=== PATIENT | male | born 1995 | race African-American/Black ===

== ENCOUNTER 2017-08-18 19:26 | Emergency (ER) | payer SELFPAY | END 2017-08-18 21:03 | disposition home or self-care (01) | LOC: ER 19:26 | DX: K40.90 Unilateral inguinal hernia, without obstruction or gangrene, not specified as recurrent (principal); K43.9 Ventral hernia without obstruction or gangrene; K59.00 Constipation, unspecified | CPT/HCPCS: 74018; 99284 ==

== ENCOUNTER 2017-11-20 16:36 | Emergency (ER) | payer OTHER ==
[~2017-11-20] VITALS: Ht 190.5 cm; Wt 85.7 kg
[~2017-11-20 16:36] MED LIST: DOCU-109 PO; IBUP200T44 PO
[2017-11-20 19:21] LABS: BASO # 0.1 x10^3/uL (0.0-0.2); BASO % 1 % (0-3); EOS # 0.2 x10^3/uL (0.0-0.7); EOS % 2 % (0-3); HEMATOCRIT 44.5 % (39.0-53.0); HEMOGLOBIN 15.2 g/dL (13.0-17.5); LYMPH # 2.9 x10^3/uL (1.0-4.8); LYMPH % 34 % (24-48); MEAN CORPUSCULAR HEMOGLOBIN 29 pg (25-35); MEAN CORPUSCULAR HGB CONC 34 g/dL (31-37); MEAN CORPUSCULAR VOLUME 84 fL (79-100); MONO # 0.8 x10^3/uL (0.0-1.1); MONO % 10 % (0-9); NEUT # 4.6 x10^3uL (1.8-7.7); NEUT % 53 % (31-73); PLATELET COUNT 161 x10^3/uL (140-400); RED BLOOD COUNT 5.33 x10^6/uL (4.30-5.70); RED CELL DISTRIBUTION WIDTH 13.5 % (11.5-14.5); WHITE BLOOD COUNT 8.7 x10^3/uL (4.0-11.0)
[2017-11-20 19:33] LABS: CREATININE 1.1 mg/dL (0.7-1.3); GFR 101.3; POTASSIUM 4.1 mmol/L (3.5-5.1)
[2017-11-20 19:40] LABS: ALBUMIN 3.8 g/dL (3.4-5.0); ALBUMIN/GLOBULIN RATIO 1.2 (1.0-1.7); TOTAL BILIRUBIN 0.3 mg/dL (0.2-1.0); TOTAL PROTEIN 7.1 g/dL (6.4-8.2)
[2017-11-20 20:03] LABS: BILIRUBIN,URINE NEGATIVE (NEG); CLARITY,URINE CLEAR; COLOR,URINE YELLOW; NITRITE,URINE NEGATIVE (NEG); PH,URINE 7.5; PROTEIN,URINE NEGATIVE (NEG-TRACE); UROBILINOGEN,URINE 0.2 mg/dL (0.2 mg/dL)
--- NOTE | 2017-11-20 20:03 | RAD ---
RS Compliance Statement: One or more of the following individualized dose reduction techniques were utilized for this examination: 1. Automated exposure control 2. Adjustment of the mA and/or kV according to patient size 3. Use of iterative reconstruction technique CT head without contrast 11/20/2017 7:04 PM INDICATION: Severe headache for 4 days COMPARISON: None available TECHNIQUE: Multiple axial CT images of the head were obtained from skull base through the vertex without intravenous contrast. FINDINGS: Head: Ventricles, sulci and basal cisterns are within normal limits. There is no hydrocephalus. Colon-white matter differentiation is normal. There is no acute intracranial hemorrhage. There is no mass, mass effect or midline shift. Posterior fossa is normal in appearance. Visualized portions of the orbits are normal. Paranasal sinuses are well aerated. Mastoid air cells are well aerated. Scalp and calvaria are normal. IMPRESSION: No acute intracranial hemorrhage. Electronically signed by: Gifty Douglas MD (11/20/2017 7:59 PM) [facility]
[2017-11-20 20:09] LABS: BACTERIA,URINE 0 /HPF (0-FEW); RBC,URINE 0 /HPF (0-2); SQUAMOUS EPITHELIAL CELL,UR OCC /LPF; WBC,URINE RARE /HPF (0-4)
[2017-11-20 20:11] LABS: BARBITURATES NEG (NEG); BENZODIAZEPINES NEG (NEG); CANNABINOIDS POS (NEG); COCAINE NEG (NEG); METHADONE NEG (NEG); OPIATES NEG (NEG); PHENCYCLIDINE NEG (NEG)
[2017-11-20 20:12] LABS: AMPHETAMINE/METHAMPHETAMINE NEG (NEG)
--- NOTE | 2017-11-20 20:56 | PHYS DOC ---
Past Medical History Past Medical History: Other Additional Past Medical Histor: HERNIA Past Surgical History: No Surgical History Alcohol Use: Occasionally Drug Use: Marijuana Adult General Chief Complaint Chief Complaint: HEADACHE HPI HPI Patient is a 22 year old male who presents with day 4 of headaches. The patient states that the headache as a band across his forehead into his temples. He does not normally have headaches and has no migraine history. He denies fevers, congestion or sinus tenderness. He denies nausea or vomiting. He denies visual changes. Review of Systems Review of Systems Constitutional: Denies fever or chills [] Eyes: Denies change in visual acuity, redness, or eye pain [] HENT: Denies nasal congestion or sore throat [] Respiratory: Denies cough or shortness of breath [] Cardiovascular: No additional information not addressed in HPI [] GI: Denies abdominal pain, nausea, vomiting, bloody stools or diarrhea [] : Denies dysuria or hematuria [] Musculoskeletal: Denies back pain or joint pain [] Integument: Denies rash or skin lesions [] Neurologic: See history of present illness Endocrine: Denies polyuria or polydipsia [] All other systems were reviewed and found to be within normal limits, except as documented in this note. Allergies Allergies Allergies Coded Allergies Type Severity Reaction Last Updated Verified No Known Drug Allergies 01/11/15 No Physical Exam Physical Exam Constitutional: Well developed, well nourished, no acute distress, non-toxic appearance. [] HENT: Normocephalic, atraumatic, bilateral external ears normal, oropharynx moist, no oral exudates, nose normal. [] Eyes: PERRLA, EOMI, conjunctiva normal, no discharge. [] Neck: Normal range of motion, no tenderness, supple, no stridor. [] Cardiovascular:Heart rate regular rhythm, no murmur [] Lungs & Thorax: Bilateral breath sounds clear to auscultation [] Abdomen: Bowel sounds normal, soft, no tenderness, no masses, no pulsatile masses. [] Skin: Warm, dry, no erythema, no rash. [] Back: No tenderness, no CVA tenderness. [] Extremities: No tenderness, no cyanosis, no clubbing, ROM intact, no edema. [] Neurologic: Alert and oriented X 3, normal motor function, normal sensory function, no focal deficits noted, cranial nerves II through XII are grossly intact. [] Psychologic: Affect normal, judgement normal, mood normal. [] Current Patient Data Vital Signs Vital Signs Date Time Temp Pulse Resp B/P (MAP) Pulse Ox O2 Delivery O2 Flow Rate FiO2 11/20/17 21:00 70 18 99 11/20/17 18:44 96.8 133/72 (92) Room Air 96.8 Lab Values Laboratory Tests Test 11/20/17 19:14 11/20/17 19:50 White Blood Count 8.7 x10^3/uL (4.0-11.0) Red Blood Count 5.33 x10^6/uL (4.30-5.70) Hemoglobin 15.2 g/dL (13.0-17.5) Hematocrit 44.5 % (39.0-53.0) Mean Corpuscular Volume 84 fL (79-100) Mean Corpuscular Hemoglobin 29 pg (25-35) Mean Corpuscular Hemoglobin Concent 34 g/dL (31-37) Red Cell Distribution Width 13.5 % (11.5-14.5) Platelet Count 161 x10^3/uL (140-400) Neutrophils (%) (Auto) 53 % (31-73) Lymphocytes (%) (Auto) 34 % (24-48) Monocytes (%) (Auto) 10 % (0-9) H Eosinophils (%) (Auto) 2 % (0-3) Basophils (%) (Auto) 1 % (0-3) Neutrophils # (Auto) 4.6 x10^3uL (1.8-7.7) Lymphocytes # (Auto) 2.9 x10^3/uL (1.0-4.8) Monocytes # (Auto) 0.8 x10^3/uL (0.0-1.1) Eosinophils # (Auto) 0.2 x10^3/uL (0.0-0.7) Basophils # (Auto) 0.1 x10^3/uL (0.0-0.2) Sodium Level 145 mmol/L (136-145) Potassium Level 4.1 mmol/L (3.5-5.1) Chloride Level 108 mmol/L (98-107) H Carbon Dioxide Level 31 mmol/L (21-32) Anion Gap 6 (6-14) Blood Urea Nitrogen 11 mg/dL (8-26) Creatinine 1.1 mg/dL (0.7-1.3) Estimated GFR (Cockcroft-Gault) 101.3 BUN/Creatinine Ratio 10 (6-20) Glucose Level 114 mg/dL (70-99) H Calcium Level 9.0 mg/dL (8.5-10.1) Total Bilirubin 0.3 mg/dL (0.2-1.0) Aspartate Amino Transferase (AST) 15 U/L (15-37) Alanine Aminotransferase (ALT) 24 U/L (16-63) Alkaline Phosphatase 50 U/L (46-116) Total Protein 7.1 g/dL (6.4-8.2) Albumin 3.8 g/dL (3.4-5.0) Albumin/Globulin Ratio 1.2 (1.0-1.7) Urine Collection Type Unknown Urine Color Yellow Urine Clarity Clear Urine pH 7.5 Urine Specific [place] 1.025 Urine Protein Negative mg/dL (NEG-TRACE) Urine Glucose (UA) Negative mg/dL (NEG) Urine Ketones (Stick) Negative mg/dL (NEG) Urine Blood Negative (NEG) Urine Nitrite Negative (NEG) Urine Bilirubin Negative (NEG) Urine Urobilinogen Dipstick 0.2 mg/dL (0.2 mg/dL) Urine Leukocyte Esterase Negative (NEG) Urine RBC 0 /HPF (0-2) Urine WBC Rare /HPF (0-4) Urine Squamous Epithelial Cells Occ /LPF Urine Bacteria 0 /HPF (0-FEW) Urine Mucus Mod /LPF Urine Opiates Screen Neg (NEG) Urine Methadone Screen Neg (NEG) Urine Barbiturates Neg (NEG) Urine Phencyclidine Screen Neg (NEG) Urine Amphetamine/Methamphetamine Neg (NEG) Urine Benzodiazepines Screen Neg (NEG) Urine Cocaine Screen Neg (NEG) Urine Cannabinoids Screen Pos (NEG) Urine Ethyl Alcohol Neg (NEG) Laboratory Tests 11/20/17 19:14 Laboratory Tests 11/20/17 19:14 EKG EKG [] Radiology/Procedures Radiology/Procedures []Signed PATIENT: NALDO GORMAN ACCOUNT: [id number] : 1995 LOCATION: ER AGE: 22 SEX: M EXAM STATUS: REG ER ORD. PHYSICIAN: PRAMOD LAMAR APRN REASON: headache x 4 days, no headache hx PROCEDURE: CT HEAD WO CONTRAST PQRS Compliance Statement: One or more of the following individualized dose reduction techniques were utilized for this examination: 1. Automated exposure control 2. Adjustment of the mA and/or kV according to patient size 3. Use of iterative reconstruction technique CT head without contrast 11/20/2017 7:04 PM INDICATION: Severe headache for 4 days COMPARISON: None available TECHNIQUE: Multiple axial CT images of the head were obtained from skull base through the vertex without intravenous contrast. FINDINGS: Head: Ventricles, sulci and basal cisterns are within normal limits. There is no hydrocephalus. Colon-white matter differentiation is normal. There is no acute intracranial hemorrhage. There is no mass, mass effect or midline shift. Posterior fossa is normal in appearance. Visualized portions of the orbits are normal. Paranasal sinuses are well aerated. Mastoid air cells are well aerated. Scalp and calvaria are normal. IMPRESSION: No acute intracranial hemorrhage. Electronically signed by: Gifty Douglas MD (11/20/2017 7:59 PM) [facility] Course & Med Decision Making Course & Med Decision Making Pertinent Labs and Imaging studies reviewed. (See chart for details) [] Dragon Disclaimer Dragon Disclaimer This electronic medical record was generated, in whole or in part, using a voice recognition dictation system. Departure Departure Impression: Primary Impression: Headache Disposition: 01 HOME, SELF-CARE Condition: STABLE Referrals: NO PCP (PCP) Patient Instructions: General Headache Without Cause Additional Instructions: You may use ibuprofen or Tylenol for headache. Follow-up with a primary care provider within the week for recheck or return to the emergency department if worsening. Attending Signature Attending Signature I have reviewed the PA/UNDERWATER PHOTOGRAPHER's note and plan of care. I was available for consultation as needed during the patient's visit in the emergency department. I agree with the clinical impression, plan, and disposition. PRAMOD LAMAR APRN Nov 20, 2017 20:55 CARLO MAE DO Nov 21, 2017 04:35
[2017-11-20 21:00] VITALS: BP 112/53
== END 2017-11-20 21:25 | disposition home or self-care (01) ==
LOC: ER 16:36
DX: R51 Headache (principal)
CPT/HCPCS: 36415; 70450; 80053; 80307; 81001; 85025; 99285-25; G0479

== ENCOUNTER 2018-02-15 09:29 | Emergency (ER) | payer OTHER ==
[~2018-02-15] VITALS: Ht 190.5 cm; Wt 81.6 kg
[2018-02-15 09:48] VITALS: BP 141/83
--- NOTE | 2018-02-15 09:57 | PHYS DOC ---
Past Medical History Past Medical History: No Pertinent History, Other Additional Past Medical Histor: HERNIA Past Surgical History: No Surgical History Alcohol Use: Occasionally Drug Use: Marijuana Adult General Chief Complaint Chief Complaint: WRIST PAIN [facility] Patient is a 22 year old male who presents with pain in his right forearm after he opened a heavy door this morning. He denies having the door shut on the extremity or any traumatic occurrence. He did not take any medications for his pain but instead presented directly to the emergency department. Review of Systems Review of Systems Constitutional: Denies fever or chills [] Respiratory: Denies cough or shortness of breath [] Cardiovascular: No additional information not addressed in HPI [] GI: Denies abdominal pain, nausea, vomiting, bloody stools or diarrhea [] : Denies dysuria or hematuria [] Musculoskeletal: See history of present illness Integument: Denies rash or skin lesions [] Neurologic: Denies headache, focal weakness or sensory changes [] Endocrine: Denies polyuria or polydipsia [] All other systems were reviewed and found to be within normal limits, except as documented in this note. Current Medications Current Medications Current Medications Medications (Trade) Dose Ordered Sig/James Start Time Stop Time Status Last Admin Dose Admin Ibuprofen (Motrin) 600 mg 1X ONCE 02/15/18 10:00 02/15/18 10:01 DC 02/15/18 10:20 600 MG Allergies Allergies Allergies Coded Allergies Type Severity Reaction Last Updated Verified No Known Drug Allergies 01/11/15 No Physical Exam Physical Exam Constitutional: Well developed, well nourished, no acute distress, non-toxic appearance. [] Cardiovascular:Heart rate regular rhythm, no murmur [] Lungs & Thorax: Bilateral breath sounds clear to auscultation [] Abdomen: Bowel sounds normal, soft, no tenderness, no masses, no pulsatile masses. [] Skin: Warm, dry, no erythema, no rash. [] Back: No tenderness, no CVA tenderness. [] Extremities: tenderness to right forearm with no gross deformity or bony abnormality felt, no cyanosis, no clubbing, ROM intact, no edema, calor or ecchymosis noted. [] Neurologic: Alert and oriented X 3, normal motor function, normal sensory function, no focal deficits noted. [] Psychologic: Affect normal, judgement normal, mood normal. [] Current Patient Data Vital Signs Vital Signs Date Time Temp Pulse Resp B/P (MAP) Pulse Ox O2 Delivery O2 Flow Rate FiO2 02/15/18 09:48 97.9 65 16 141/83 (102) 98 Room Air 97.9 EKG EKG [] Radiology/Procedures Radiology/Procedures [] Course & Med Decision Making Course & Med Decision Making Pertinent Labs and Imaging studies reviewed. (See chart for details) []The patient is been given ibuprofen in the emergency department. He was placed in a Velcro splint for comfort. Dragon Disclaimer Dragon Disclaimer This electronic medical record was generated, in whole or in part, using a voice recognition dictation system. Departure Departure Impression: Primary Impression: Muscle strain Disposition: HOME, SELF-CARE Condition: STABLE Referrals: NO PCP (PCP) Patient Instructions: Muscle Cramps, [id number], RICE - Routine Care for Injuries Additional Instructions: Follow-up with your primary care provider for recheck in 3 days if not improving. Return to the emergency department if worsening. RICE the extremity for comfort. Splinting Splinting : Location: R wrist Pre-Made Type: velcro Splint: wrist Pre-Proc Neuro Vasc Exam: normal Post-Proc Neuro Vasc Exam: normal, unchanged from pre-exam Attending Signature Attending Signature I have reviewed the PA/DIRECTOR OF SUPPLY CHAIN's note and plan of care. I was available for consultation as needed during the patient's visit in the emergency department. I agree with the clinical impression, plan, and disposition. PRAMOD LAMAR APRN Feb 15, 2018 09:57 CARLO MAE DO Feb 16, 2018 20:06
[2018-02-15] MEDS: IBUPROFEN 600 MG TABLET. PO ONE (10:20)
== END 2018-02-15 10:25 | disposition home or self-care (01) ==
LOC: ER 09:29
DX: S66.811A Strain of other specified muscles, fascia and tendons at wrist and hand level, right hand, initial encounter (principal); X50.9XXA Other and unspecified overexertion or strenuous movements or postures, initial encounter; X50.0XXA Overexertion from strenuous movement or load, initial encounter; Y93.89 Activity, other specified; Y92.89 Other specified places as the place of occurrence of the external cause; Y99.8 Other external cause status
CPT/HCPCS: 29125; 99283-25

== ENCOUNTER 2018-09-13 04:31 | Emergency (ER) | payer SELFPAY ==
[~2018-09-13] VITALS: Ht 188 cm; Wt 98.9 kg
[2018-09-13 04:35] VITALS: BP 159/86
--- NOTE | 2018-09-13 05:22 | PHYS DOC ---
Past Medical History Past Medical History: No Pertinent History, Other Additional Past Medical Histor: HERNIA Past Surgical History: No Surgical History Alcohol Use: Occasionally Drug Use: Marijuana Adult General Chief Complaint Chief Complaint: ABDOMINAL PAIN HPI HPI Patient is a 23 year old male who presents with symptomatic inguinal hernia become worse last week to keep pushing boxes at work. Feels it is left abdomen but also mainly feels in his left groin no vomiting no fever able to eat and drink he came to get a work note go back to work Review of Systems Review of Systems Constitutional: Denies fever or chills [] Eyes: Denies change in visual acuity, redness, or eye pain [] HENT: Denies nasal congestion or sore throat [] Respiratory: Denies cough or shortness of breath [] Cardiovascular: No additional information not addressed in HPI [] GI: We Musculoskeletal: Denies back pain or joint pain [] Integument: Denies rash or skin lesions [] Neurologic: Denies headache, focal weakness or sensory changes [] Endocrine: Denies polyuria or polydipsia [] All other systems were reviewed and found to be within normal limits, except as documented in this note. Allergies Allergies Allergies Coded Allergies Type Severity Reaction Last Updated Verified No Known Drug Allergies 01/11/15 No Physical Exam Physical Exam Constitutional: Well developed, well nourished, no acute distress, non-toxic appearance. [] HENT: Normocephalic, atraumatic, bilateral external ears normal, oropharynx moist, no oral exudates, nose normal. [] Eyes: PERRLA, EOMI, conjunctiva normal, no discharge. [] Neck: Normal range of motion, no tenderness, supple, no stridor. [] Abdomen: Bowel sounds normal, soft, no tenderness, there is a reducible inguinal hernia on the left otherwise abdomen is basically nontender evidence feel any other obvious hernias Skin: Warm, dry, no erythema, no rash. [] Extremities: No tenderness, no cyanosis, no clubbing, ROM intact, no edema. [] Neurologic: Alert and oriented X 3, normal motor function, normal sensory function, no focal deficits noted. [] Psychologic: Affect normal, judgement normal, mood normal. [] Current Patient Data Vital Signs Vital Signs Date Time Temp Pulse Resp B/P (MAP) Pulse Ox O2 Delivery O2 Flow Rate FiO2 09/13/18 04:35 97.7 62 16 159/86 (110) 98 Room Air 97.7 EKG EKG [] Radiology/Procedures Radiology/Procedures [] Course & Med Decision Making Course & Med Decision Making Pertinent Labs and Imaging studies reviewed. (See chart for details) []Reducible inguinal hernia patient was given a work note and phone number for surgery clinic for follow-up Dragon Disclaimer Dragon Disclaimer This electronic medical record was generated, in whole or in part, using a voice recognition dictation system. Departure Departure Impression: Primary Impression: Hernia Disposition: 01 HOME, SELF-CARE Condition: STABLE Referrals: JANNA ARCEO MD Patient Instructions: Hernia, [id number] LISBETH SCHMID MD Sep 13, 2018 05:22
== END 2018-09-13 05:10 | disposition home or self-care (01) ==
LOC: ER 04:31
DX: K40.90 Unilateral inguinal hernia, without obstruction or gangrene, not specified as recurrent (principal)
CPT/HCPCS: 99281

== ENCOUNTER 2018-09-28 20:49 | Emergency (ER) | payer SELFPAY ==
[~2018-09-28] VITALS: Ht 190.5 cm; Wt 98.9 kg
[2018-09-28 21:19] VITALS: BP 119/78
--- NOTE | 2018-09-28 21:44 | PHYS DOC ---
Past Medical History Past Medical History: No Pertinent History, Other Additional Past Medical Histor: HERNIA Past Surgical History: No Surgical History Alcohol Use: Occasionally Drug Use: Marijuana Adult General Chief Complaint Chief Complaint: SHOULDER INJURY HPI HPI Patient is a 23 year old AA male who presents to the emergency room with complaints of left-sided low back pain, left shoulder, and left elbow pain after slipping and falling on water at work this morning. Patient states that the injury happened at approximately 7:30 this morning. He denies any loss of consciousness, head injury, nausea, vomiting, or neck pain. Patient states he was seen at the clinic at work where they just looked him over and sent him home for the day. He denies any numbness, tingling, or weakness of the affected extremities. He currently rates his pain an 8 out of 10 on the pain scale. He states that the work comp clinic told him to take naproxen but he has not taken any because he does not trust their instruction. Review of Systems Review of Systems Constitutional: Denies fever or chills [] Musculoskeletal: See history of present illness Integument: Denies rash or skin lesions [] Neurologic: Denies headache, focal weakness or sensory changes [] Allergies Allergies Allergies Coded Allergies Type Severity Reaction Last Updated Verified No Known Drug Allergies 01/11/15 No Physical Exam Physical Exam Constitutional: Well developed, well nourished, no acute distress, non-toxic appearance. [] HENT: Normocephalic, atraumatic, bilateral external ears normal, nose normal. [] Eyes: PERRLA, conjunctiva normal, no discharge. [] Neck: Normal range of motion, no stridor. [] Lungs & Thorax: Respirations even and unlabored, no retractions, no respiratory distress Skin: Warm, dry, no erythema, no rash, no bruising. [] Extremities: No cyanosis, no clubbing, no edema; lateral left shoulder tenderness to palpation with limited range of motion due to pain, no crepitus, no deformity; left elbow tenderness to palpation with limited range of motion due to pain no crepitus, no obvious deformity Neurologic: Alert and oriented X 3, normal motor function, normal sensory function, no focal deficits noted. [] Psychologic: Affect normal, judgement normal, mood normal. [] Current Patient Data Vital Signs Vital Signs Date Time Temp Pulse Resp B/P (MAP) Pulse Ox O2 Delivery O2 Flow Rate FiO2 09/28/18 21:19 98.1 69 20 119/78 (92) 99 Room Air 98.1 EKG EKG [] Radiology/Procedures Radiology/Procedures Left shoulder and left elbow x-ray negative for any acute fractures or findings as read by Dr. Kaiser[] Course & Med Decision Making Course & Med Decision Making Pertinent Labs and Imaging studies reviewed. (See chart for details) dx: Left shoulder pain, left elbow contusion, left elbow pain X-rays were negative for any acute fractures or dislocations. Prescription written for naproxen. patient encouraged to apply ice and rest the affected extremities, follow-up with the work comp doctor if symptoms persist, return to the ER if symptoms worsen. Patient verbalized an understanding of home care, medications, follow-up, and return to ED instructions and was in agreement with the plan of care. [] Dragon Disclaimer Dragon Disclaimer This electronic medical record was generated, in whole or in part, using a voice recognition dictation system. Departure Departure Impression: Primary Impression: Left shoulder pain Additional Impressions: Left elbow contusion Left elbow pain Disposition: 01 HOME, SELF-CARE Condition: STABLE Referrals: NO PCP (PCP) Patient Instructions: Contusion, [id number], Shoulder Pain, [id number] Additional Instructions: Fill the prescription and use as directed. Follow up with your work comp doctor if symptoms persist. Scripts Naproxen (NAPROXEN) 500 Mg Tablet 1 TAB PO BID for 10 Days, #20 TAB 0 Refills Prov: TOY SMART APRN 09/28/18 Problem Qualifiers Primary Impression: Left shoulder pain Chronicity: acute Qualified Codes: M25.512 - Pain in left shoulder Additional Impressions: Left elbow contusion Encounter type: initial encounter Qualified Codes: S50.02XA - Contusion of left elbow, initial encounter TOY SMART APRN Sep 28, 2018 21:44
[2018-09-28] MEDS ORDERED: NAPR-514 PO (23:13)
--- NOTE | 2018-09-29 08:09 | RAD ---
EXAM: 3 views left shoulder 3 views left elbow DATE: 09/28/2018 9:41 PM INDICATION: Left shoulder and left elbow pain after fall COMPARISON: No Prior FINDINGS: Left shoulder: No evidence of acute fracture or dislocation. Humeral head isn't high riding. AC joint is congruent. No significant degenerative change. Left elbow: No evidence of acute fracture or dislocation. No left elbow joint effusion. IMPRESSION: No evidence of acute fracture or dislocation of the left shoulder or elbow Electronically signed by: Edd Jones MD (09/29/2018 8:06 AM) [facility]
== END 2018-09-28 23:29 | disposition home or self-care (01) ==
LOC: ER 20:49
DX: S50.02XA Contusion of left elbow, initial encounter (principal); M25.512 Pain in left shoulder; M54.5 Low back pain; W01.0XXA Fall on same level from slipping, tripping and stumbling without subsequent striking against object, initial encounter; Y93.89 Activity, other specified; Y92.89 Other specified places as the place of occurrence of the external cause; Y99.0 Civilian activity done for income or pay
CPT/HCPCS: 73030; 73080; 99284

== ENCOUNTER 2018-09-30 16:22 | Emergency (ER) | payer SELFPAY ==
[~2018-09-30] VITALS: Ht 188 cm; Wt 98.9 kg
[~2018-09-30 16:22] MED LIST changes: +NAPR-514 PO
[2018-09-30 17:00] VITALS: BP 139/82
--- NOTE | 2018-09-30 17:14 | PHYS DOC ---
Past Medical History Past Medical History: Other Additional Past Medical Histor: HERNIA Past Surgical History: No Surgical History Alcohol Use: Occasionally Drug Use: Marijuana Adult General Chief Complaint Chief Complaint: SHOULDER INJURY HPI HPI Patient is a 23 year old male who presents with left shoulder pain. Patient states he hurt the shoulder at work at 6 AM on Wednesday. Patient was seen at [place] at work injury clinic on Wednesday, and then came to the ER here at [place] that night. He states that he received x-rays on both visits and they're both negative. Rates his pain as 8 out of 10 in severity and states it throbs, and that he's been taking naproxen at home. Review of Systems Review of Systems Constitutional: Denies fever or chills [] Eyes: Denies change in visual acuity, redness, or eye pain [] HENT: Denies nasal congestion or sore throat [] Respiratory: Denies cough or shortness of breath [] Cardiovascular: No additional information not addressed in HPI [] GI: Denies abdominal pain, nausea, vomiting, bloody stools or diarrhea [] : Denies dysuria or hematuria [] Musculoskeletal: Reports L shoulder pain. Integument: Denies rash or skin lesions [] Neurologic: Denies headache, focal weakness or sensory changes [] Endocrine: Denies polyuria or polydipsia [] Complete systems were reviewed and found to be within normal limits, except as documented in this note. Allergies Allergies Allergies Coded Allergies Type Severity Reaction Last Updated Verified No Known Drug Allergies 01/11/15 No Physical Exam Physical Exam Constitutional: Well developed, well nourished, no acute distress, non-toxic appearance. [] HENT: Normocephalic, atraumatic, bilateral external ears normal, oropharynx moist, no oral exudates, nose normal. [] Eyes: PERRLA, EOMI, conjunctiva normal, no discharge. [] Neck: Normal range of motion, no tenderness, supple, no stridor. [] Skin: Warm, dry, no erythema, no rash. [] Extremities: No tenderness, no cyanosis, no clubbing, ROM intact, no edema. [] Neurologic: Alert and oriented X 3, normal motor function, normal sensory function, no focal deficits noted. [] Psychologic: Affect normal, judgement normal, mood normal. [] EKG EKG [] Radiology/Procedures Radiology/Procedures [] Course & Med Decision Making Course & Med Decision Making Pertinent Labs and Imaging studies reviewed. (See chart for details) Discussed with patient that likely he has an injury that is not showing up on x- ray and if pain continues he needs an MRI. I recommended he follow up with the work injury doctor for evaluation of MRI. Dragon Disclaimer Dragon Disclaimer This electronic medical record was generated, in whole or in part, using a voice recognition dictation system. Departure Departure Impression: Primary Impression: Left shoulder pain Disposition: HOME, SELF-CARE Condition: STABLE Referrals: UNKNOWN PCP NAME (PCP) Patient Instructions: Shoulder Pain Additional Instructions: Thank you for visiting [facility]. We appreciate you trusting us with your care. If any additional problems come up don't hesitate to return to visit us. Please follow up with your primary care provider so they can plan additional care if needed and know about the problem that you had. If symptoms worsen come back to the Emergency Department. Any concerning symptoms that start such as chest pain, shortness of air, weakness or numbness on one side of the body, running high fevers or any other concerning symptoms return to the ER. Problem Qualifiers Primary Impression: Left shoulder pain Chronicity: acute Qualified Codes: M25.512 - Pain in left shoulder CARLO REBOLLAR APRN Sep 30, 2018 17:14
[2018-09-30] MEDS ORDERED: KETOROLAC 30 MG/ML VIAL. IM ONE (17:30)
== END 2018-09-30 17:29 | disposition home or self-care (01) ==
LOC: ER 16:22
DX: M25.512 Pain in left shoulder (principal)
CPT/HCPCS: 96372; 99284; J1885

== ENCOUNTER 2018-10-03 21:18 | Emergency (ER) | payer SELFPAY ==
[~2018-10-03] VITALS: Ht 188 cm; Wt 98.9 kg
[2018-10-03 21:44] VITALS: BP 134/69
[2018-10-03] MEDS ORDERED: CYCLOBENZAPRINE 10 MG TABLET. PO ONE (22:45)
[2018-10-03] MEDS ORDERED: predniSONE 10 MG TABLET PO ONE (22:45)
[2018-10-03] MEDS ORDERED: CYCL10TA2 PO (22:48)
[2018-10-03] MEDS ORDERED: METH4TAB2 PO (22:48)
--- NOTE | 2018-10-03 22:49 | PHYS DOC ---
Past Medical History Past Medical History: No Pertinent History, Other Additional Past Medical Histor: HERNIA,L ROTATOR CUFF INJURY (ED DOMINGUEZ APRN) Past Surgical History: No Surgical History (ED DOMINGUEZ APRN) Alcohol Use: Occasionally Drug Use: Marijuana (ED DOMINGUEZ APRN) Adult General Chief Complaint Chief Complaint: UPPER EXTREMITY PAIN HPI HPI Patient is a 23 year old male who presents to the ED today complaining of 8 out of 10 throbbing constant left shoulder pain that began 09/28/2018 after he fell at work. Patient states the pain is exacerbated on range of motion. He states he was seen at [facility], he states they did x-rays which were negative. He followed up with workman kaleigh on the same day. He states he came back to the ED the same evening and was seen, another set of x-rays were done on the left shoulder which were negative. He was in the ED also on October 01, 2015 fo r the same complaint. He states they put him on naproxen which is not helping. Patient denies any pain radiating to the left upper extremity. Denies any numbness or tingling to the left upper extremity. He also states he has issues of left shoulder rotator cuff tears and is wondering if this is the source of his pain. (ED DOMINGUEZ APRN) Review of Systems Review of Systems Constitutional: Denies fever or chills [] Musculoskeletal: Reports left shoulder pain Integument: Denies rash or skin lesions [] Neurologic: Denies headache, focal weakness or sensory changes [] All other systems were reviewed and found to be within normal limits, except as documented in this note. (ED DOMINGUEZ APRN) Current Medications Current Medications Current Medications Medications (Trade) Dose Ordered Sig/James Start Time Stop Time Status Last Admin Dose Admin Cyclobenzaprine HCl (Flexeril) 10 mg 1X ONCE 10/03/18 22:45 10/03/18 22:46 DC 10/03/18 23:02 10 MG Prednisone (Prednisone) 50 mg 1X ONCE 10/03/18 22:45 10/03/18 22:46 DC 10/03/18 23:02 50 MG (CARLO MAE DO) Allergies Allergies Allergies Coded Allergies Type Severity Reaction Last Updated Verified No Known Drug Allergies 01/11/15 No (MAE,CARLO R DO) Physical Exam Physical Exam Constitutional: Well developed, well nourished, no acute distress, non-toxic appearance. [] Skin: Warm, dry, no erythema, no rash. [] Back: No tenderness, no CVA tenderness. [] Extremities: Left shoulder with no obvious deformity, no edema and ecchymosis. No tenderness on exam. Full passive as well as active range of motion to the left shoulder. Adequate radial, medial, ulnar sensation to the left upper extremity. Adequate plantar flexion and dorsiflexion of the left forearm. +2 left radial pulse. Cap refill less than 2 seconds and left fingers. Neurologic: Alert and oriented X 3, normal motor function, normal sensory function, no focal deficits noted. [] Psychologic: Affect normal, judgement normal, mood normal. [] (ED DOMINGUEZ APRN) Current Patient Data Vital Signs Vital Signs Date Time Temp Pulse Resp B/P (MAP) Pulse Ox O2 Delivery O2 Flow Rate FiO2 10/03/18 21:44 97.9 65 14 134/69 (90) 100 Room Air 97.9 (CARLO MAE DO) EKG EKG [] (ED DOMINGUEZ APRN) Radiology/Procedures Radiology/Procedures [] (ED DOMINGUEZ APRN) Course & Med Decision Making Course & Med Decision Making Pertinent Labs and Imaging studies reviewed. (See chart for details) This is a 23-year-old male patient who presents to the ED today with left shoulder pain that began on September 28, 2018 after falling at work, patient was seen at 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 At this point I provided patient an orthopedic doctor, karo, recommended following up with an orthopedic doctor as an outpatient. Given prescription for Medrol Dosepak and cyclobenzaprine to take with the naproxen. (ED DOMINGUEZ APRN) Dragon Disclaimer Dragon Disclaimer This electronic medical record was generated, in whole or in part, using a voice recognition dictation system. (ED DOMINGUEZ APRN) Departure Departure Impression: Primary Impression: Left shoulder pain Disposition: 01 HOME, SELF-CARE Condition: STABLE Referrals: UNKNOWN PCP NAME (PCP) SRUTHI DUMONT MD follow up in one week Patient Instructions: Shoulder Pain, [id number] Additional Instructions: You were seen for ongoing left shoulder pain. We highly recommend you follow-up with the provided orthopedic doctor in the course of 7 days. Try to ice and elevate the extremity. Take the prescribed medications as ordered. Scripts Cyclobenzaprine Hcl (CYCLOBENZAPRINE HCL) 10 Mg Tablet 1 TAB PO TID, #30 TAB Prov: AMPAROED KRAMER GIL 10/03/18 Methylprednisolone (MEDROL) 4 Mg Tab.ds.pk 1 PKG PO UD, #1 PKG Prov: ED DOMINGUEZ GIL 10/03/18 Attending Signature Attending Signature I have reviewed the PA/CONSTRUCTION SUPERVISOR's note and plan of care. I was available for consultation as needed during the patient's visit in the emergency department. I agree with the clinical impression, plan, and disposition. (CARLO MAE DO) Problem Qualifiers Primary Impression: Left shoulder pain Chronicity: acute Qualified Codes: M25.512 - Pain in left shoulder AMPAROED KRAMER GIL Oct 03, 2018 22:49 CARLO MAE DO Oct 04, 2018 02:37
== END 2018-10-03 23:00 | disposition home or self-care (01) ==
LOC: ER 21:18
DX: M25.512 Pain in left shoulder (principal); G89.11 Acute pain due to trauma; W18.39XA Other fall on same level, initial encounter; Y93.89 Activity, other specified; Y92.69 Other specified industrial and construction area as the place of occurrence of the external cause; Y99.0 Civilian activity done for income or pay
CPT/HCPCS: 99283; J7512

== ENCOUNTER 2020-10-04 11:19 | Emergency (ER) | payer SELFPAY ==
[~2020-10-04] VITALS: Ht 188 cm; Wt 77.2 kg
[~2020-10-04 11:19] MED LIST changes: +CYCL10TA2 PO; +METH4TAB2 PO
[2020-10-04 11:35] VITALS: BP 154/68
[2020-10-04] MEDS ORDERED: DEXAMETHASONE 4 MG TABLET PO ONE (12:00)
[2020-10-04] MEDS ORDERED: BENZ1LOZ48 PO (14:35)
[2020-10-04] MEDS ORDERED: GUAI-108 PO (14:35)
--- NOTE | 2020-10-04 14:36 | PHYS DOC ---
Past Medical History Past Medical History: No Pertinent History, Other Additional Past Medical Histor: HERNIA,L ROTATOR CUFF INJURY Past Surgical History: No Surgical History Smoking Status: Current Every Day Smoker Alcohol Use: Occasionally Drug Use: Marijuana General Adult EDM: Chief Complaint: FLU SYMPTOM HPI: HPI: 26 year-old transgender female (biologically male, no hormones or surgeries) PMH tobacco use presents the ED with complaints of sore throat, chills, nasal congestion/pressure, dry cough, and "meat tastes funny," stating " I think I have strep throat." Patient reports he is a tobacco smoker and has family members with similar symptoms., But he does not have Covid and is not vaccinated for Covid. No prior history of Covid. Denies any associated chest pain or shortness of breath. Review of Systems: Review of Systems: Constitutional: Denies malaise or fever Eyes: Denies change in visual acuity or discharge HENT: Denies rhinorrhea or hoarse voice Respiratory: Denies hemoptysis or increased work of breathing] Cardiovascular: Denies chest pain or edema. [] GI: Denies nausea, vomiting, or diarrhea. [] : Denies dysuria or hematuria Musculoskeletal: Denies back pain or joint pain. [] Integument: Denies rash or diaphoresis Neurologic: Denies headache, neck pain, focal weakness or sensory changes. [] Endocrine: Denies polyuria or polydipsia. [] Lymphatic: Denies swollen glands. [] Psychiatric: Denies depression or anxiety. [] Heart Score: C/O Chest Pain: No Risk Factors: Risk Factors: DM, Current or recent (<one month) smoker, HTN, HLP, family history of CAD, obesity. Risk Scores: Score 0 - 3: 2.5% MACE over next 6 weeks - Discharge Home Score 4 - 6: 20.3% MACE over next 6 weeks - Admit for Clinical Observation Score 7 - 10: 72.7% MACE over next 6 weeks - Early Invasive Strategies Current Medications: Current Medications Medications (Trade) Dose Ordered Sig/James Start Time Stop Time Status Last Admin Dose Admin Dexamethasone (Decadron) 10 mg 1X ONCE 10/04/20 12:00 10/04/20 12:01 DC 10/04/20 12:39 10 MG Allergies: Allergies: Allergies Coded Allergies Type Severity Reaction Last Updated Verified No Known Drug Allergies 01/11/15 No Physical Exam: PE: Constitutional: Well developed, well nourished, no acute distress, non-toxic appearance, fit HENT: Normocephalic, atraumatic, mild pharyngeal erythema with no exudates-one vesicle over left palatine arch with no palatal petechiae, nasal voice with maxillary sinus pressure Eyes: EOMI, conjunctiva normal, no discharge. Neck: Normal range of motion, supple, Cardiovascular: S1/2 present, regular rhythm Lungs & Thorax: Speaking in full sentences, bilateral equal chest rise, no tachypnea or increased work of breathing Skin: Warm, dry, Extremities: No tenderness, no cyanosis, Neurologic: Alert and oriented X 3, no focal deficits noted. [] Psychologic: Affect normal, judgement normal, mood normal. [] Current Patient Data: Labs: Laboratory Tests Test 10/04/20 11:35 10/04/20 12:30 Group A Streptococcus Rapid Negative (NEGATIVE) SARS-CoV-2 Antigen (Rapid) Positive (NEGATIVE) *A Vital Signs: Vital Signs Date Time Temp Pulse Resp B/P (MAP) Pulse Ox O2 Delivery O2 Flow Rate FiO2 10/04/20 11:35 99.0 78 18 154/68 (90) 99 Room Air 99.0 EKG: EKG: [] Radiology/Procedures: Radiology/Procedures: [] Course & Med Decision Making: Course & Med Decision Making Pertinent Labs and Imaging studies reviewed. (See chart for details) Concern for sore throat and acute sinusitis in the setting of positive COVID-19. Dexamethasone given in ED. Will prescribe topical Mucinex DM. Will discharge home with strict ED return precautions were given for difficulties breathing, chest pain, stroke symptoms or syncope. Encouraged urgent outpatient follow-up with PMD for routine care. Life-threatening processes were considered but are low suspicion at this time, given history, physical exam and ED workup. Pt was educated on all prescription medications and adverse effects. All patient's questions were answered and pt was stable at time of discharge. Life/limb-threatening differential includes but is not limited to, airway emergency or respiratory distress/ARDS or fatigue or head or neck swelling, toxidrome, sepsis/shock, angioedema, anaphylaxis, congestive heart failure, myocarditis, acute myocardial infarction, dysrhythmias, cardiomyopathy, venous thromboembolism, pulmonary emboli, acute necrotizing hemorrhagic encephalopathy ,cerebral venous thrombosis, meningitis, encephalitis or CVA. I have spoken with the patient and/or caregivers. I explained the patient's condition, diagnoses and treatment plan based on the information available to me at this time. I have answered the patient and/or caregiver's questions and addressed any concerns. The patient and/or caregivers have a good understanding of patient's diagnosis, condition and treatment plan as can be expected at this point. Vital signs have been stable. Patient's condition is stable and appropriate for discharge from the emergency department. Patient will pursue further outpatient evaluation with primary care physician or other designated or consulting physician as outlined in the discharge instructions. The patient and/or caregivers are agreeable to this plan of care and follow-up instructions have been explained in detail. The patient and/or caregivers have received these instructions in written form and have expressed an understanding of the discharge instructions. The patient and/or caregivers are aware that any significant change of condition or worsening of symptoms should prompt immediate return to this or the closest emergency department or call to 911. Francis Disclaimer: Francis Disclaimer: This electronic medical record was generated, in whole or in part, using a voice recognition dictation system. Departure Departure Impression: Primary Impression: COVID-19 Additional Impressions: Sore throat (viral) Sinusitis, acute Disposition: 01 HOME / SELF CARE / HOMELESS Condition: STABLE Referrals: UNKNOWN PCP NAME (PCP) Follow-up with your primary care physician OR FOLLOW UP WITH FAMILY MEDICINE: [address], [address] [place] [address] Patient Instructions: Sinusitis, Sore Throat Additional Instructions: Return to ED immediately if your oxygen level drops below 90% (purchase a pulse oximetry at a medical supply store), difficulties breathing including rapid breathing or increased work of breathing (skin sucking under ribs), chest pain or stroke-like symptoms (facial droop, speech changes, arm/leg weakness). You have been tested for or diagnosed with COVID-19. It is an infection caused by a new type of coronavirus. COVID-19 will cause cold-like or mild flu symptoms in most. It can cause more severe symptoms like problems breathing in some. There is no treatment for COVID-19. The body will clear the infection over time. Self-care will help to ease discomfort. Steps to Take: Self-Care Rest as needed. Healthy habits may help you feel better. Steps include: Choose healthy foods including fruits and vegetables. Drink water throughout the day. Get plenty of sleep each night. If you smoke, try to quit. It may ease breathing. Avoid alcohol. Keep Others Healthy The virus can spread to others. Droplets are released every time you sneeze or cough. The droplets can get into the mouth, nose, or eyes of people near you and lead to infection. To lower the chances of spreading COVID-19 to others: Stay at home until your doctor has said it is safe to leave. If you tested positive this will mean staying isolated until both of the following are true: At least 7 days have passed since the start of illness. You are free of fever for at least 72 hours without the use of medicine. During this time: - Avoid public areas, events, or transportation. Do not return to work or school until your doctor has said it is safe to do so. - Call ahead if you need to go to a medical center. Let them know you may have COVID-19. It will help them guide you where to go. They may also ask you to wear a facemask when you come to the office. - If you call for emergency medical services, let them know you may have COVID- 19. While at home: - Try to avoid close contact with others. Stay about 6 feet away. - If possible, spend most of your time in a separate room from others. - Use a face mask if you will be in close contact with others such as sharing a room or vehicle. - Have someone wipe down common surfaces in the home. Use household fax machine repairer every day on areas like doorknobs, counters, or sinks. - Cough or sneeze into a tissue. Throw the tissue away right after use. If a tissue is not available, cough or sneeze into your elbow. - Wash your hands often. Wash them after sneezing or coughing. Use soap and water and wash for at least 20 seconds. Alcohol based hand suede cleaner can be used if soap and water is not available. - Do not prepare food for others. Avoid sharing personal items like forks, spoons, or toothbrushes. - Avoid close contact with pets while you are sick. There is no evidence of the virus passing to pets. This is a safety step until more is known about this virus. Isolation can be frustrating. Social interaction can help. Keep in touch with friends and family through phone and tech options. You can still interact with others in your home, just keep a safe distance of about 6 feet. Follow-up: Your doctors office will check in with you to see if there are any changes in your health. You may be asked to keep track of symptoms to share with them. They will also let you know when you are clear to be in public again. Problems to Look Out For: Contact your doctor if your recovery is not going as you expect. Get emergency care if you have problems such as: - Trouble breathing - Nonstop chest pain or pressure - Changes in awareness, confusion, or problems waking - Lips or face have bluish color - Worsening of symptoms If you think you have an emergency, call for emergency medical services right away. As taken from [facility] Scripts Guaifenesin/Dextromethorphan (MUCINEX DM ER 600-30 MG TABLET) 1 Each Tab.er.12h 1 TAB PO PRN BID PRN for cough and congestion for 7 Days, #14 TAB 0 Refills Prov: DOMINICK ELLIOTT DO 10/04/20 Benzocaine/Menthol (CEPACOL SORE THROAT LOZENGE) 1 Each Lozenge 1 TAB PO Q4HRS for sore throat for 3 Days, #18 TAB 0 Refills Prov: DOMINICK ELLIOTT DO 10/04/20 DOMINICK ELLIOTT DO Oct 04, 2020 14:35
== END 2020-10-04 14:40 | disposition home or self-care (01) ==
LOC: ER 11:19
DX: U07.1 COVID-19 (principal); J02.8 Acute pharyngitis due to other specified organisms; B97.89 Other viral agents as the cause of diseases classified elsewhere; J01.90 Acute sinusitis, unspecified; F17.200 Nicotine dependence, unspecified, uncomplicated
CPT/HCPCS: 87070; 87426; 87880; 99283